=== PATIENT | female | born 1995 | race Two or more races ===

== ENCOUNTER 2019-03-04 07:44 | Emergency (ER) | payer MEDICAID, OTHER ==
[~2019-03-04] VITALS: Ht 157.5 cm; Wt 49.0 kg
[2019-03-04 08:14] VITALS: BP 109/69
[2019-03-04] MEDS ORDERED: KETOROLAC TROMETH 60MG/2ML VIAL IM ONE (09:00)
== END 2019-03-04 09:12 | disposition home or self-care (01) ==
LOC: ER 07:49
DX: M25.511 Pain in right shoulder (principal); R51 Headache; F17.210 Nicotine dependence, cigarettes, uncomplicated; Z88.0 Allergy status to penicillin
CPT/HCPCS: 73030; 96372; 99283; J1885

== ENCOUNTER 2019-03-07 20:46 | Emergency (ER) | payer OTHER ==
[~2019-03-07] VITALS: Ht 157.5 cm; Wt 49.0 kg
[2019-03-07] MEDS ORDERED: LORazepam 0.5 MG TAB PO ONE (21:30)
[2019-03-07 21:59] VITALS: BP 126/83
== END 2019-03-07 22:06 | disposition home or self-care (01) ==
LOC: MERGE 20:46 → ER 20:46
DX: F41.9 Anxiety disorder, unspecified (principal); R25.2 Cramp and spasm

== ENCOUNTER 2024-12-09 18:46 | Emergency (ER) | payer MEDICAID, OTHER ==
[~2024-12-09] VITALS: Ht 157.5 cm; Wt 54.2 kg
[2024-12-09 18:48] VITALS: BP 124/72; PULSE 83; RESP 19; TEMP 97.8; O2SAT 10
== END 2024-12-09 22:06 | disposition left against medical advice (07) ==
LOC: ER 18:46
DX: M25.473 Effusion, unspecified ankle (principal); Z53.21 Procedure and treatment not carried out due to patient leaving prior to being seen by health care provider